=== PATIENT | female | born 1975 | race Two or more races ===

== ENCOUNTER 2018-11-12 13:28 | Emergency (ER) | payer BC ==
[~2018-11-12] VITALS: Ht 165.1 cm; Wt 77.1 kg
[2018-11-12 13:39] VITALS: BP 125/62
[2018-11-12] MEDS ORDERED: CETIRIZINE HCL 10 MG TABLET. PO STA (13:48)
[2018-11-12] MEDS ORDERED: methylPREDNISolone SOD SUCC PF 125 MG/2 ML VIAL. IM ONE (14:00)
[2018-11-12] MEDS ORDERED: FAMOTIDINE 20 MG TABLET. PO ONE (14:00)
[2018-11-12] MEDS ORDERED: CETI10TA22 PO (14:01)
[2018-11-12] MEDS ORDERED: FAMO20TA5 PO (14:01)
[2018-11-12] MEDS ORDERED: PRED50TA PO (14:01)
--- NOTE | 2018-11-12 14:01 | PHYS DOC ---
Past Medical History Past Medical History: No Pertinent History Past Surgical History: Hysterectomy Alcohol Use: None Drug Use: None Adult General Chief Complaint Chief Complaint: SKIN RASH/ABSCESS HPI HPI Patient is a 42 year old female who presents with a pruritic rash that began yesterday. Patient denies any new soaps, new medicines, new laundry detergents or using anything new. Patient states she has tried Benadryl with no relief. Review of Systems Review of Systems Constitutional: Denies fever or chills [] Eyes: Denies change in visual acuity, redness, or eye pain [] HENT: Denies nasal congestion or sore throat [] Respiratory: Denies cough or shortness of breath [] Cardiovascular: No additional information not addressed in HPI [] GI: Denies abdominal pain, nausea, vomiting, bloody stools or diarrhea [] : Denies dysuria or hematuria [] Musculoskeletal: Denies back pain or joint pain [] Integument: Reports rash Neurologic: Denies headache, focal weakness or sensory changes [] All other systems were reviewed and found to be within normal limits, except as documented in this note. Current Medications Current Medications Current Medications Medications (Trade) Dose Ordered Sig/Claritza Start Time Stop Time Status Last Admin Dose Admin Cetirizine HCl (ZyrTEC) 10 mg 1X STAT 11/12/18 13:48 11/12/18 13:51 DC Famotidine (Pepcid) 20 mg 1X ONCE 11/12/18 14:00 11/12/18 14:01 Methylprednisolone Sodium Succinate (SOLU-Medrol 125MG VIAL) 125 mg 1X ONCE 11/12/18 14:00 11/12/18 14:01 Allergies Allergies Allergies Coded Allergies Type Severity Reaction Last Updated Verified No Known Drug Allergies 11/12/18 No Physical Exam Physical Exam Constitutional: Well developed, well nourished, no acute distress, non-toxic appearance. [] HENT: Normocephalic, atraumatic, bilateral external ears normal, oropharynx moist, no oral exudates, nose normal. [] Eyes: PERRLA, EOMI, conjunctiva normal, no discharge. [] Neck: Normal range of motion, no tenderness, supple, no stridor. [] Cardiovascular:Heart rate regular rhythm, no murmur [] Lungs & Thorax: Bilateral breath sounds clear to auscultation [] Abdomen: Bowel sounds normal, soft, no tenderness, no masses, no pulsatile masses. [] Skin: Warm, dry, mild amount of erythematous papular rash on patient's face, chest, bilateral upper extremities and lower extremities Back: No tenderness, no CVA tenderness. [] Extremities: No tenderness, no cyanosis, no clubbing, ROM intact, no edema. [] Neurologic: Alert and oriented X 3, normal motor function, normal sensory function, no focal deficits noted. [] Psychologic: Affect normal, judgement normal, mood normal. [] Current Patient Data Vital Signs Vital Signs Date Time Temp Pulse Resp B/P (MAP) Pulse Ox O2 Delivery O2 Flow Rate FiO2 11/12/18 13:39 97.9 73 18 125/62 (83) 98 Room Air 97.9 EKG EKG [] Radiology/Procedures Radiology/Procedures [] Course & Med Decision Making Course & Med Decision Making Pertinent Labs and Imaging studies reviewed. (See chart for details) Patient has contact dermatitis rash from unknown cause. Discharge and prednisone , Benadryl and Pepcid. Follow-up with PCP in 1-2 weeks as needed. Dragon Disclaimer Dragon Disclaimer This electronic medical record was generated, in whole or in part, using a voice recognition dictation system. Departure Departure Impression: Primary Impression: Contact dermatitis Disposition: 01 HOME, SELF-CARE Condition: STABLE Referrals: NO PCP (PCP) TIM SOLOMON MD follow up with your doctor in 1-2 weeks Patient Instructions: Contact Dermatitis, [id number] Additional Instructions: You were evaluated in the emergency room and noted to have a rash. We put you on medications, take them as prescribed. Come back to the ED at any point symptoms worsen otherwise follow-up with your own doctor in 1-2 weeks. Scripts Cetirizine Hcl (ZYRTEC) 10 Mg Tablet 1 TAB PO DAILY, #30 TAB 2 Refills Prov: MUTUNGA,FANTA CLINICAL DERMATOLOGIST 11/12/18 Famotidine (FAMOTIDINE) 20 Mg Tablet 20 MG PO DAILY, #7 TAB Prov: MUTUNGA,FANTA CLINICAL DERMATOLOGIST 11/12/18 Prednisone (PREDNISONE) 50 Mg Tablet 1 TAB PO DAILY, #5 TAB Prov: MUTUNGA,FANTA CLINICAL DERMATOLOGIST 11/12/18 Problem Qualifiers Primary Impression: Contact dermatitis Contact dermatitis type: unspecified Contact dermatitis trigger: unspecified trigger Qualified Codes: L25.9 - Unspecified contact dermatitis, unspecified cause FANTA HORTON APRN Nov 12, 2018 14:01
== END 2018-11-12 14:16 | disposition home or self-care (01) ==
LOC: ER 13:28
DX: L25.9 Unspecified contact dermatitis, unspecified cause (principal); Z90.710 Acquired absence of both cervix and uterus
CPT/HCPCS: 96372; 99283; J2930